=== PATIENT | male | born 1990 | race Caucasian/White ===

== ENCOUNTER 2022-02-03 12:44 | Outpatient (CLI) | payer OTHER, SELFPAY ==
--- NOTE | 2022-02-03 13:00 | CRLHL7_ITS ---
For Patients: As a result of the Century Cures Act, medical imaging exams and procedure reports are released immediately into your electronic medical record. You may view this report before your referring provider. If you have questions, please contact your health care provider. INDICATION: Exertional headaches. COMPARISON: None. TECHNIQUE: [id number]-ld-vsderr MRA. 3D reconstructed images. FINDINGS: Bilateral carotid siphons are patent. Patent [place] with diminutive bilateral posterior communicating arteries. Visualized bilateral OMAR and MCA circulations are patent without focal stenosis or aneurysm. 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 Patent left dominant vertebrobasilar system. IMPRESSION: Normal MRA head. Dictated by Jarrod Waite MD @ 02/03/2022 4:33:26 PM (Electronically Signed)
--- NOTE | 2022-02-03 13:45 | CRLHL7_ITS ---
For Patients: As a result of the Century Cures Act, medical imaging exams and procedure reports are released immediately into your electronic medical record. You may view this report before your referring provider. If you have questions, please contact your health care provider. INDICATION: Primary exertional headaches. COMPARISON: None. TECHNIQUE: Multiplanar T1, T2, FLAIR and diffusion-weighted imaging. Post gadolinium T1 weighted sequences. FINDINGS: Normal brain parenchymal morphology. No intracranial hemorrhage. No abnormal ventricular dilatation. Intracranial vascular flow voids are preserved. No mass effect. No midline shift. No restricted diffusion to suggest acute ischemia. No abnormal enhancement or enhancing lesions within the brain parenchyma. Bilateral orbits are unremarkable. Normal appearing sella. Visualized paranasal sinuses and mastoid air cells are unremarkable. IMPRESSION: 1. No acute intracranial abnormality. 2. Normal brain parenchymal morphology and signal intensity. 3. No abnormal enhancement or enhancing lesions. Dictated by Jarrod Waite MD @ 02/03/2022 4:28:36 PM (Electronically Signed)
== END 2022-02-03 12:45 | disposition home or self-care (01) ==
LOC: MRI 12:46
PROVIDERS: Visit Provider Physician Assistant
DX: G44.84 Primary exertional headache (principal)
CPT/HCPCS: 70544; 70553; A9575

== ENCOUNTER 2023-07-29 13:31 | Outpatient (CLI) | payer OTHER, SELFPAY ==
--- NOTE | 2023-07-29 13:45 | MR_ITS ---
[address] [address] Phone:?[phone] Fax:?[phone] Referring Physician Information: . [facility] Medical Records [facility] [address] [facility] [address] Phone:?[phone] Fax:?[phone] Patient:Doreen Arthur Arthur D.O.B:?1990 Sex:?Male Phone:?[phone] [facility] MRN:?[id number] Exam Date:?07/29/2023 EXAM: MRI EXAMINATION OF THE LEFT KNEE CLINICAL INFORMATION: Left knee pain. No history of surgery to this area. Possible MCL injury. TECHNICAL INFORMATION: Coronal PD, T2 and STIR. Axial PD and T2 fat saturation. Sagittal PD and T2 fat saturation images acquired. No prior studies for comparison. INTERPRETATION: Bones: Marrow edema signal to indicate osseous contusion involves the mid to anterior periphery of the lateral femoral condyle. There is a minimal appearance of associated impaction fracturing. No evidence for an occult fracture or osseous contusion involves the patella. No other abnormal bone marrow edema pattern is identified. Ligaments and tendons: The medial collateral ligament is intact, without acute sprain or tear. The iliotibial band, fibular collateral ligament, biceps femoris tendon and popliteus tendon all are intact. The anterior cruciate ligament is intact without acute sprain or tear. The posterior cruciate ligament is intact. Extensor Mechanism: The patellar and quadriceps tendons are intact. The lateral retinaculum is intact. Soft tissue hemorrhage and inflammation associated with high-grade tearing involving the femoral attachment of the medial patellofemoral ligament. Knee Joint: There is a moderate knee joint effusion. No discrete popliteal cyst. There is no discrete loose body seen within the joint. Medial Compartment: There is no evidence for discrete medial meniscal tear. No displaced flap fragment or parameniscal cyst. There is no focal chondral defect. No other significant changes of chondromalacia. Lateral Compartment: There is no evidence for discrete lateral meniscal tear. No displaced flap fragment or parameniscal cyst. There is no focal chondral defect. No other significant changes of chondromalacia. Patellofemoral articulation: There is no focal chondral defect. No other significant chondromalacia. CONCLUSION: 1. Osseous contusion with minimal impaction fracturing involves the mid to anterior periphery of the lateral femoral condyle. Additional soft tissue hemorrhage and inflammation associated with high-grade tearing involving the femoral attachment of the medial patellofemoral ligament. Appearance would be in keeping with residua of transient lateral patellar dislocation injury. 2. No occult fracture or osseous contusion involves the patella. 3. Intact appearance of the articular cartilage of the patellofemoral compartment and elsewhere of the knee. 4. There is a moderate knee joint effusion, without loose body. 5. No evidence for a meniscal tear. The cruciate ligaments are intact. KES Electronically signed on 07/30/2023 8:19:00 AM by Leobardo Julien M.D.
== END 2023-07-29 13:32 | disposition home or self-care (01) ==
LOC: MRI 13:32
PROVIDERS: PCP Student in an Organized Health Care Education/Training Program; Visit Provider Student in an Organized Health Care Education/Training Program
DX: M25.562 Pain in left knee (principal); S76.112A Strain of left quadriceps muscle, fascia and tendon, initial encounter; S72.422A Displaced fracture of lateral condyle of left femur, initial encounter for closed fracture; M25.462 Effusion, left knee
CPT/HCPCS: 73721

== ENCOUNTER 2024-04-05 17:24 | Outpatient (CLI) | payer OTHER, SELFPAY | END 2024-04-05 17:25 | disposition home or self-care (01) | LOC: NFLDUCREF 17:25 | PROVIDERS: PCP Student in an Organized Health Care Education/Training Program; Visit Provider Nurse Practitioner | DX: M54.2 Cervicalgia (principal); J02.9 Acute pharyngitis, unspecified | CPT/HCPCS: 84443 ==